=== PATIENT | male | born 1990 | race African-American/Black ===

== ENCOUNTER 2016-04-27 15:34 | Emergency (ER) | payer MEDICAID ==
[~2016-04-27] VITALS: Ht 170.2 cm; Wt 77.1 kg
[2016-04-27] MEDS ORDERED: Morphine Sulfate 4mg/ml Inj IVP ONE (15:45)
[2016-04-27] MEDS ORDERED: Ketorolac 30mg Inj IV ONE (17:00)
[2016-04-27] MEDS ORDERED: Norco 5mg/325mg tab ORAL ONE (17:00)
--- NOTE | 2016-04-27 17:08 | Diagnostic Imaging Report ---
Indications: PAIN Technique: Three views of the right knee Comparison: None Findings: No acute fractures. No dislocations. Joint spaces are preserved. No radiopaque foreign body. Normal mineralization. Impression: No acute process
[2016-04-27] MEDS ORDERED: NORCO 5-325 TA1 EACH ORAL (17:10)
[2016-04-27] MEDS ORDERED: IBUPROFEN600 MG ORAL (17:10)
[2016-04-27 17:21] VITALS: BP 135/87
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
--- NOTE | 2016-05-01 10:33 | Diagnostic Imaging Report ---
Indications: PAIN Technique: Two views of the right femur Comparison: None Findings: No acute fractures. No dislocations. Joint spaces are preserved Impression: Negative
== END 2016-04-27 17:21 | disposition home or self-care (01) ==
LOC: EDBD 15:34 → EMR 16:03
DX: S89.81XA Other specified injuries of right lower leg, initial encounter (principal); V13.4XXA Pedal cycle driver injured in collision with car, pick-up truck or van in traffic accident, initial encounter; Y93.55 Activity, bike riding; Y92.410 Unspecified street and highway as the place of occurrence of the external cause; J45.909 Unspecified asthma, uncomplicated
CPT/HCPCS: 29530; 73552; 73562; 96374; 99284; J1885; J2270